=== PATIENT | female | born 1995 | race Caucasian/White ===

== ENCOUNTER 2016-09-30 15:50 | Outpatient (CLI) | payer MEDICAID ==
[~2016-09-30] VITALS: Ht 121.9 cm; Wt 50.2 kg
[2016-09-30 16:11] VITALS: BP 101/55; PULSE 80; Ht 121.9 cm; Wt 50.2 kg
[2016-09-30] MEDS ORDERED: TERBUTALINE 1 MG/ML INJ SC ONE ×2 (16:30→21:00)
[2016-09-30] MEDS ORDERED: LACTATED RINGER'S 1,000 ML IV SCH (16:30)
[2016-09-30] MEDS ORDERED: TERBUTALINE 1 ML ONE (16:30)
--- NOTE | 2016-09-30 21:03 | PN ---
Date/Time of Note Date/Time of Note DATE: 09/30/16 TIME: 20:54 OB Subjective Subjective Subjective 20 yo P0 @ 35 wks presents w ctx good FM, no VB, no LOF Ctx have now diminished after hydration and terbutaline OB Objective Objective Objective Nml VS Abdomen- gravid, n/t SVE- 07/05/-3 FHT- Cat I [place]- ctx, which are now diminished Abdomen: WNL Cervical Dilatation: 1cm Effacement: 25% Station: -3 Accelerations: Accelerations Present Decelerations: No Decelerations Contractions on Admission: >10 Minutes Apart OB Assessment/Plan Other plan: 20 yo P1 @ 35 wks w pre-term ctx, not in labor reassuring status d/c home PTL precautions ROSA ALVAREZ MD Sep 30, 2016 21:03
== END 2016-09-30 21:10 | disposition home or self-care (01) ==
LOC: L-D 15:50 → OBT 15:50
PROVIDERS: ATTEND Obstetrics & Gynecology
DX: O47.03 False labor before 37 completed weeks of gestation, third trimester (principal); Z3A.35 35 weeks gestation of pregnancy
CPT/HCPCS: 96360; 96361; 96372; J3105; J7120; Z7500; G0463

== ENCOUNTER 2016-10-17 20:43 | Outpatient (CLI) | payer MEDICAID ==
[~2016-10-17] VITALS: Ht 142.2 cm; Wt 51.7 kg
[2016-10-17 21:02] VITALS: Ht 142.2 cm; Wt 51.7 kg
[2016-10-17 21:05] VITALS: BP 100/62; PULSE 75; RESP 16
--- NOTE | 2016-10-17 22:36 | HP ---
Date/Time of Note Date/Time of Note DATE: 10/17/16 TIME: 22:32 OB - History Hx of Present Free Text/Dictation Laborist Note 20 YO with IUP at 35+ weeks reports to L&D with mild UCs. she denies LOF per vagina and VB. she reports good FM Care: Good Care Ultrasounds: Normal mid trimester US Obstetrical Complications: None Medical Complications: None Past Family/Social History * Past Medical, Surgical, Family and Obstetric Histories reviewed from chart. OB Admission Exam Vital Signs Vital Signs Vital Signs Date Time Temp Pulse Resp B/P Pulse Ox O2 Delivery O2 Flow Rate FiO2 10/17/16 21:05 98.0 75 16 100/62 Room Air Physical Exam HEENT: WNL Heart: Rhythm Normal Lungs: Clear, Equal Abdomen: WNL Extremities: Normal Reflexes: Normal Cervical Dilatation: 1cm OB Assessment/Plan Other Assessment: 35.6 weeks with infrequent ucs. Other plan: will be rechecked. if no cervical change then she is not in labor and she has false labor. she may be discharged home at that time HERNANDEZ JORGENSEN MD October 17, 2016 22:36
--- NOTE | 2016-10-18 01:54 | TRIAGE ---
OB Triage Datetime Report Generated by CPN: 10/18/2016 01:54 Datetime: 10/17/2016 21:21 Stage of : OB Triage Datetime: 10/17/2016 21:11 Vaginal Exam Dilatation (cms): 1.0 Effacement (%): 60 Station: -3 Exam By: jose rafael Vaginal Bleeding: None Cervix, Consistency: Soft Cervix, Position: Posterior Presentation 'A': Cephalic Datetime: 10/17/2016 20:57 Assessment Type: Triage Maternal Assessment Level of Consciousness: Fully Conscious DTR's/Clonus: DTRs 2+; No Clonus Headache: Denies Blurred Vision: No Respiratory Effort: Unlabored; Regular Rhythm; Equal Expansion Breath Sounds, Left: Clear and Equal Breath Sounds, Right: Clear and Equal Nausea/Vomiting: Denies RUQ Epigastric Pain: Denies Facial Edema: None Fall Risk Assessment History of Falling: (0) No Secondary Diagnosis: (0) No Ambulatory Aid: (0) Bedrest/Nurse Assist IV Therapy: (0) No Gait: (0) Normal/Bedrest/Immobile Mental Status: (0) Oriented to Own Ability Fall Score: 0 Fall Risk Score Definition: No Risk: No action required Comment: presented to triage c_o yellowish discharge and lower abdominal pain. fob present at beds damon. call light within reach. Datetime: 10/17/2016 20:56 Labor Evaluation Frequency: x2 Monitor Mode: External Duration (sec)2399: 40-50 Quality: Mild Pattern: Normal: <= 5 Contractions in 10 Minutes Resting Tone [place]: Relaxed Heart Rate FHR Baseline Rate: 125 Monitor Mode: External US Comments: placed on efm Datetime: 10/17/2016 20:52 Time of Arrival: 10/17/2016 20:40 EGA: 37.3 Arrived By: Wheelchair Arrived From: Home Chief Complaint: c_o yellowish discharge and lower abdominal pain Movement: Present Contractions: Denies/Absent Rupture of Membranes: Denies Vaginal Bleeding: None Vaginal Discharge: Present Recent Sexual Intercouse: Denies Abdominal Trauma: Not Applicable Patient Complaints: Contractions Time Provider Notified: 10/17/2016 21:21 Provider Notified: Initial Plan: EFM x2, VE Datetime: 09/30/2016 21:00 Stage of : OB Triage Datetime: 09/30/2016 20:53 Time of Arrival: 09/30/2016 20:53 EGA: 35.0 Arrived By: Ambulatory Arrived From: Home Labor Evaluation Frequency: 0 Monitor Mode: External Quality: Mild Pattern: Normal: <= 5 Contractions in 10 Minutes Resting Tone [place]: Relaxed Heart Rate FHR Baseline Rate: 135 Monitor Mode: External US FHR Baseline Changes: No Baseline Change Variability: Moderate 6-25 bpm Accelerations: 15X15 Decelerations: None Category: Category I Datetime: 09/30/2016 20:00 Stage of : OB Triage Labor Evaluation Frequency: 4/HR Monitor Mode: External Duration (sec)2399: 30-60 Quality: Mild Pattern: Normal: <= 5 Contractions in 10 Minutes Resting Tone [place]: Relaxed Heart Rate FHR Baseline Rate: 125 Monitor Mode: External US FHR Baseline Changes: No Baseline Change Variability: Moderate 6-25 bpm Accelerations: 15X15 Decelerations: None Category: Category I Datetime: 09/30/2016 19:54 Stage of : OB Triage Datetime: 09/30/2016 19:53 Stage of : OB Triage Datetime: 09/30/2016 19:43 Membrane Status: Intact Datetime: 09/30/2016 19:14 Assessment Type: Triage Maternal Assessment Level of Consciousness: Fully Conscious DTR's/Clonus: DTRs 2+; No Clonus Headache: Denies Blurred Vision: No Respiratory Effort: Unlabored; Regular Rhythm; Equal Expansion Breath Sounds, Left: Clear and Equal Breath Sounds, Right: Clear and Equal Nausea/Vomiting: Denies RUQ Epigastric Pain: Denies Facial Edema: None Fall Risk Assessment History of Falling: (0) No Secondary Diagnosis: (0) No Ambulatory Aid: (0) Bedrest/Nurse Assist IV Therapy: (0) No Gait: (0) Normal/Bedrest/Immobile Mental Status: (0) Oriented to Own Ability Fall Score: 0 Fall Risk Score Definition: No Risk: No action required Datetime: 09/30/2016 19:09 Vaginal Exam Dilatation (cms): 1.0 Effacement (%): 30 Station: -3 Exam By: Norma LUC RN Vaginal Bleeding: None Cervix, Consistency: Firm Cervix, Position: Posterior Datetime: 09/30/2016 18:08 Labor Evaluation Frequency: 0 Monitor Mode: External Resting Tone [place]: Relaxed Heart Rate FHR Baseline Rate: 145 Monitor Mode: External US Variability: Moderate 6-25 bpm Accelerations: 10X10 Decelerations: None Category: Category I Pain Assessment Pain Scale: 0 Pain Presence: None/Denies Pain Type: N/A Pain Goal: 3 Pain Relief Measures: Comfort Measures Datetime: 09/30/2016 17:08 Labor Evaluation Frequency: 0 Monitor Mode: External Resting Tone [place]: Relaxed Heart Rate FHR Baseline Rate: 135 Monitor Mode: External US Variability: Moderate 6-25 bpm Decelerations: None Category: Category I Pain Assessment Pain Scale: 0 Pain Presence: None/Denies Pain Type: N/A Pain Goal: 3 Pain Relief Measures: Comfort Measures Datetime: 09/30/2016 16:17 Stage of : OB Triage Datetime: 09/30/2016 16:05 Stage of : OB Triage Assessment Type: Triage EGA: 35.0 Maternal Assessment Level of Consciousness: Fully Conscious DTR's/Clonus: DTRs 2+; No Clonus Headache: Denies Blurred Vision: No Respiratory Effort: Unlabored; Regular Rhythm; Equal Expansion Breath Sounds, Left: Clear and Equal Breath Sounds, Right: Clear and Equal Nausea/Vomiting: Denies RUQ Epigastric Pain: Denies Facial Edema: None Temperature Route: Axillary Fall Risk Assessment History of Falling: (0) No Secondary Diagnosis: (0) No Ambulatory Aid: (0) Bedrest/Nurse Assist IV Therapy: (0) No Gait: (0) Normal/Bedrest/Immobile Mental Status: (0) Oriented to Own Ability Fall Score: 0 Fall Risk Score Definition: No Risk: No action required Labor Evaluation Frequency: APPLIED Monitor Mode: External Resting Tone [place]: Relaxed Heart Rate FHR Baseline Rate: 125 Monitor Mode: External US Variability: Moderate 6-25 bpm Decelerations: None Category: Category I Pain Assessment Pain Scale: 4 Pain Presence: Intermittent Pain Type: Cramping; Contraction Pain Location: Abdomen Pain Goal: 3 Pain Relief Measures: Comfort Measures Datetime: 09/30/2016 16:04 Time of Arrival: 09/30/2016 15:45 Arrived By: Ambulatory Arrived From: Dr. Mancilla Chief Complaint: SENT FROM OFFICE C/O UC'S Q 20 MIN, DENIES BLEEDING OR LEAKING OF FLUID Movement: Present Contractions: Irregular Contractions: 20 Rupture of Membranes: Denies Vaginal Bleeding: None Vaginal Discharge: Denies Recent Sexual Intercouse: Denies Abdominal Trauma: Not Applicable Patient Complaints: Contractions; Cramping Time Provider Notified: 09/30/2016 16:17 Provider Notified: TEMO Initial Plan: MONITOR, VE, IV HYDRATION, TERB .25MG SQ x1
== END 2016-10-17 23:45 | disposition home or self-care (01) ==
LOC: OBT 20:43 → L-D 20:43 → OBT 23:45
PROVIDERS: ATTEND Obstetrics & Gynecology
DX: O62.9 Abnormality of forces of labor, unspecified (principal); Z3A.35 35 weeks gestation of pregnancy
CPT/HCPCS: G0463

== ENCOUNTER 2016-10-20 16:42 | Outpatient (CLI) | payer MEDICAID ==
[~2016-10-20] VITALS: Ht 142.2 cm; Wt 51.3 kg
[2016-10-20 17:04] VITALS: BP 92/61; PULSE 94; RESP 16; Ht 142.2 cm; Wt 51.3 kg
--- NOTE | 2016-10-20 17:37 | RADRPT ---
PROCEDURE: US biophysical profile. CLINICAL INDICATION: Decreased motion. TECHNIQUE: Multiple sonographic images of the uterus were obtained. The images were revi ewed on a PACS workstation. COMPARISON: No prior studies are available for comparison. FINDINGS: There is a single live intrauterine gestation. heart rate is 132 beats per minute. The position is cephalic. The placenta is posterior fundal grade III with no abruption or previa. The DORITA is 9.0 cm. (Normal = 5-20 cm.) Breathing Movement: 2 Gross Body Movement: 2 Tone: 2 Qualitative Amniotic Fluid Volume: 2 TOTAL: 8 IMPRESSION: 1. The biophysical score is 8/8. RPTAT: QQ .Lonnie Spear MD, MD Date Time Electronically viewed and signed by .Lonnie Spear MD, on 10/20/2016 17:36 .R/
--- NOTE | 2016-10-20 18:08 | TRIAGE ---
OB Triage Datetime Report Generated by CPN: 10/20/2016 18:07 Datetime: 10/20/2016 17:07 Maternal Assessment Level of Consciousness: Fully Conscious DTR's/Clonus: DTRs 2+; No Clonus Headache: Denies Blurred Vision: No Respiratory Effort: Unlabored; Regular Rhythm; Equal Expansion Breath Sounds, Left: Clear and Equal Breath Sounds, Right: Clear and Equal Nausea/Vomiting: Denies RUQ Epigastric Pain: Denies Facial Edema: None Fall Risk Assessment History of Falling: (0) No Secondary Diagnosis: (0) No Ambulatory Aid: (0) Bedrest/Nurse Assist IV Therapy: (0) No Gait: (0) Normal/Bedrest/Immobile Mental Status: (0) Oriented to Own Ability Fall Score: 0 Fall Risk Score Definition: No Risk: No action required Datetime: 10/20/2016 17:06 Time of Arrival: 10/20/2016 16:38 EGA: 37.6 Arrived By: Ambulatory Arrived From: [facility] Chief Complaint: Pt. came to hospital from md office with referral for nst and bpp due to decrease d fm Movement: Decreased Contractions: Denies/Absent Rupture of Membranes: Denies Vaginal Bleeding: None Vaginal Discharge: Denies Recent Sexual Intercouse: Denies Abdominal Trauma: Not Applicable Patient Complaints: Other Initial Plan: nst, bpp Datetime: 10/17/2016 23:37 Stage of : OB Triage Labor Evaluation Frequency: 1-3.5 Monitor Mode: External Duration (sec)2399: 40-90 Quality: Mild Pattern: Normal: <= 5 Contractions in 10 Minutes Resting Tone [place]: Relaxed Heart Rate FHR Baseline Rate: 125 Monitor Mode: External US FHR Baseline Changes: No Baseline Change Variability: Moderate 6-25 bpm Accelerations: 15X15 Decelerations: None Category: Category I Pain Assessment Pain Scale: 3 Pain Presence: Intermittent Pain Type: Cramping Pain Location: Abdomen Pain Relief Measures: Comfort Measures Pain Assessment Comments: Pt comfortable to go home _ come back when uc's stronger. Datetime: 10/17/2016 23:27 Vaginal Exam Dilatation (cms): 1.0 Effacement (%): 60 Station: -3 Exam By: BRANDI Centeno Membrane Status: Intact Vaginal Bleeding: None Cervix, Position: Posterior Datetime: 10/17/2016 23:00 Stage of : OB Triage Labor Evaluation Frequency: 1-4 Monitor Mode: External Duration (sec)2399: 40-100 Quality: Mild Pattern: Normal: <= 5 Contractions in 10 Minutes Resting Tone [place]: Relaxed Heart Rate FHR Baseline Rate: 125 Monitor Mode: External US FHR Baseline Changes: No Baseline Change Variability: Moderate 6-25 bpm Accelerations: 15X15 Decelerations: None Category: Category I Datetime: 10/17/2016 22:21 Stage of : OB Triage Datetime: 10/17/2016 21:31 Stage of : OB Triage Labor Evaluation Frequency: 1-8.5 Monitor Mode: External Duration (sec)2399: 40-100 Quality: Mild Pattern: Normal: <= 5 Contractions in 10 Minutes Resting Tone [place]: Relaxed Heart Rate FHR Baseline Rate: 125 Monitor Mode: External US Variability: Moderate 6-25 bpm Accelerations: 15X15 Decelerations: None Category: Category I Datetime: 10/17/2016 20:57 Fall Score: 0 Fall Risk Score Definition: No Risk: No action required Datetime: 10/17/2016 20:52 EGA: 37.3 Datetime: 09/30/2016 20:53 EGA: 35.0 Datetime: 09/30/2016 19:14 Fall Score: 0 Fall Risk Score Definition: No Risk: No action required Datetime: 09/30/2016 16:05 EGA: 35.0 Fall Score: 0 Fall Risk Score Definition: No Risk: No action required
--- NOTE | 2016-10-20 19:38 | QN ---
Documentation Comment 20-year-old with IUP at 37 weeks was sent from the office due to decreased movements. Patient denies any leaking of fluid, vaginal bleeding or contractions. Patient denies any other complaint. Physical examination: General appearance alert and oriented 4 patient does not appear to be in any acute distress. Abdomen: Soft, gravid, nontender, fundal height consistent with gestational age NST: Category 1 and reactive BPP: 8/8 DORITA: 9 Occasional rare contraction seen on the monitor. Patient does not feel them. PROCEDURE: US biophysical profile. CLINICAL INDICATION: Decreased motion. TECHNIQUE: Multiple sonographic images of the uterus were obtained. The images were reviewed on a PACS workstation. COMPARISON: No prior studies are available for comparison. FINDINGS: There is a single live intrauterine gestation. heart rate is 132 beats per minute. The position is cephalic. The placenta is posterior fundal grade III with no abruption or previa. The DORITA is 9.0 cm. (Normal = 5-20 cm.) Breathing Movement: 2 Gross Body Movement: 2 Tone: 2 Qualitative Amniotic Fluid Volume: 2 TOTAL: 8 IMPRESSION: 1. The biophysical score is 8/8. RPTAT: QQ Assessment: 1. IUP at 37 weeks Decreased movement testing reassuring None in labor Patient discharged home Strict labor precaution and kick count discussed. Follow-up with OB office in 1-2 days after discharge recommended RT triage as needed any other problem MONI CORTEZ MD October 20, 2016 19:38
== END 2016-10-20 18:15 | disposition home or self-care (01) ==
LOC: OBT 16:42 → L-D 16:43 → OBT 18:15
PROVIDERS: ATTEND Obstetrics & Gynecology
DX: O36.8130 Decreased fetal movements, third trimester, not applicable or unspecified (principal); Z3A.37 37 weeks gestation of pregnancy
CPT/HCPCS: 76818; Z7500; G0463

== ENCOUNTER 2016-10-22 14:51 | Inpatient (IN) | payer MEDICAID ==
[~2016-10-22] VITALS: Ht 137.2 cm; Wt 51.6 kg
[2016-10-22 14:57] VITALS: Ht 137.2 cm; Wt 51.6 kg
[2016-10-22] MEDS ORDERED: PRENAT PO (14:58)
--- NOTE | 2016-10-22 18:17 | TRIAGE ---
OB Triage Datetime Report Generated by CPN: 10/22/2016 18:16 Datetime: 10/22/2016 18:01 Vaginal Exam Dilatation (cms): 4.0 Effacement (%): 80 Station: -2 Exam By: A GHUKASYAN Datetime: 10/22/2016 17:37 Labor Evaluation Frequency: 5-7 Monitor Mode: External Duration (sec)2399: 60-80 Quality: Mild Pattern: Normal: <= 5 Contractions in 10 Minutes Resting Tone [place]: Relaxed Heart Rate FHR Baseline Rate: 130 Monitor Mode: External US FHR Baseline Changes: No Baseline Change Variability: Moderate 6-25 bpm Accelerations: 15X15 Decelerations: None Category: Category I Pain Assessment Pain Scale: 7 Pain Presence: Intermittent Pain Type: Cramping Pain Location: Abdomen Pain Relief Measures: Comfort Measures Datetime: 10/22/2016 17:22 Vaginal Exam Dilatation (cms): 3.5 Effacement (%): 80 Station: -2 Datetime: 10/22/2016 15:37 Labor Evaluation Frequency: 4-6 Monitor Mode: External Duration (sec)2399: 50-70 Quality: Mild Pattern: Normal: <= 5 Contractions in 10 Minutes Resting Tone [place]: Relaxed Heart Rate FHR Baseline Rate: 140 Monitor Mode: External US FHR Baseline Changes: No Baseline Change Variability: Moderate 6-25 bpm Accelerations: 15X15 Decelerations: None Category: Category I Pain Assessment Pain Scale: 5 Pain Presence: Intermittent Pain Type: Cramping Pain Location: Abdomen Pain Relief Measures: Comfort Measures Vaginal Exam Dilatation (cms): 3.0 Effacement (%): 80 Station: -2 Datetime: 10/22/2016 15:02 Assessment Type: Triage Maternal Assessment Level of Consciousness: Fully Conscious DTR's/Clonus: DTRs 2+; No Clonus Headache: Denies Blurred Vision: No Respiratory Effort: Unlabored; Regular Rhythm; Equal Expansion Breath Sounds, Left: Clear and Equal Breath Sounds, Right: Clear and Equal Nausea/Vomiting: Denies RUQ Epigastric Pain: Denies Lower Extremities Edema: None Degree: None Upper Extremities Edema: None Degree: None Facial Edema: None Fall Risk Assessment History of Falling: (0) No Secondary Diagnosis: (0) No Ambulatory Aid: (0) Bedrest/Nurse Assist IV Therapy: (0) No Gait: (0) Normal/Bedrest/Immobile Mental Status: (0) Oriented to Own Ability Fall Score: 0 Fall Risk Score Definition: No Risk: No action required Datetime: 10/22/2016 14:59 Labor Evaluation Frequency: OCC Monitor Mode: External Quality: Mild Pattern: Normal: <= 5 Contractions in 10 Minutes Resting Tone [place]: Relaxed Heart Rate FHR Baseline Rate: 140 Monitor Mode: External US FHR Baseline Changes: No Baseline Change Variability: Moderate 6-25 bpm Accelerations: 15X15 Decelerations: None Category: Category I Pain Assessment Pain Scale: 4 Pain Presence: Intermittent Pain Type: Cramping Pain Location: Abdomen Pain Relief Measures: Comfort Measures Datetime: 10/22/2016 14:37 Time of Arrival: 10/22/2016 14:37 EGA: 37.2 Arrived By: Ambulatory Arrived From: Home Chief Complaint: UC'S SINCE 0530 AM Movement: Present Contractions: Irregular Time Contractions Began: 10/22/2016 05:30 Rupture of Membranes: Denies Vaginal Bleeding: None Vaginal Discharge: Denies Recent Sexual Intercouse: Denies Abdominal Trauma: Not Applicable Patient Complaints: Contractions Datetime: 10/20/2016 18:06 Labor Evaluation Frequency: occ Duration (sec)2399: 60 Quality: Mild Pattern: Normal: <= 5 Contractions in 10 Minutes Resting Tone [place]: Relaxed Heart Rate FHR Baseline Rate: 135 Monitor Mode: External US Variability: Moderate 6-25 bpm Accelerations: 15X15 Decelerations: None Category: Category I Pain Presence: None/Denies Pain Type: N/A Datetime: 10/20/2016 17:07 Fall Score: 0 Fall Risk Score Definition: No Risk: No action required Datetime: 10/20/2016 17:06 EGA: 37.0 Datetime: 10/17/2016 20:57 Fall Score: 0 Fall Risk Score Definition: No Risk: No action required Datetime: 10/17/2016 20:52 EGA: 36.4 Datetime: 09/30/2016 20:53 EGA: 34.1 Datetime: 09/30/2016 19:14 Fall Score: 0 Fall Risk Score Definition: No Risk: No action required Datetime: 09/30/2016 16:05 EGA: 34.1 Fall Score: 0 Fall Risk Score Definition: No Risk: No action required
--- NOTE | 2016-10-22 18:18 | HP ---
Date/Time of Note Date/Time of Note DATE: 10/22/16 TIME: 18:14 OB - History Hx of Present Free Text/Dictation admitted C/O UCs started 0500 AM 10/22/16 at 38 weeks Last Menstrual Period: Feb 19, 2016 Estimated Due Date: Nov 10, 2016 : 2 Para: 1 Care: Good Care Ultrasounds: Normal mid trimester US Obstetrical Complications: None Medical Complications: None Past Family/Social History * Past Medical, Surgical, Family and Obstetric Histories reviewed from chart. Blood Type: O+ Rubella: immune RPR/VDRL: Negative GBS Status: Negative HBsAG: Negative OB Admission Exam Physical Exam HEENT: WNL Heart: Rhythm Normal Lungs: Clear, Equal Abdomen: WNL Extremities: Normal Reflexes: Normal Cervical Dilatation: 4cm Effacement: 100% Station: -2 Membranes: Intact Heart Rate: 130's Accelerations: Accelerations Present Decelerations: No Decelerations Varibility: Marked Contractions on Admission: < 5 Minutes Apart Date/Time Contractions Began: 10/22/2016 0500 AM Frequency of Contractions: q 4-5 min Duration: >60 seconds Intensity: Mild OB Assessment/Plan Other Assessment: term gestation labor pains Other plan: proceed with spontaneous labor VIJAYA ANDRES MD October 22, 2016 18:18
[2016-10-22] MEDS ORDERED: METHYLERGONOVINE 0.2 MG INJ IM PRN (18:30)
[2016-10-22] MEDS ORDERED: LIDOCAINE 1% (MPF) 30 ML INJ INJ PRN (18:30)
[2016-10-22] MEDS ORDERED: LACTATED RINGER'S 1,000 ML IV PRN (18:30)
[2016-10-22] MEDS ORDERED: CARBOPROST 250 MCG INJ IM PRN (18:30)
[2016-10-22] MEDS ORDERED: IBUPROFEN 600 MG TAB PO PRN (18:30)
[2016-10-22] MEDS ORDERED: MISOPROSTOL 200 MCG TAB PR PRN (18:30)
[2016-10-22] MEDS ORDERED: BUTORPHANOL 2 MG INJ IV PRN (18:30)
[2016-10-22] MEDS ORDERED: OXYTOCIN 30 UNITS/LR 500 ML IV SCH ×2 (18:30)
[2016-10-22] MEDS ORDERED: OXYTOCIN 30 UNITS/LR 500 ML IV PRN (18:30)
[2016-10-22] MEDS: LACTATED RINGER'S 1,000 ML IV SCH ×2 (19:08→22:40)
[2016-10-22 19:09] VITALS: BP 112/71; PULSE 74; RESP 20
[2016-10-22 19:17] LABS: ADD SCAN DIFF NO
[2016-10-22 19:18] LABS: BASOPHILS % 0.4 % (0.0-2.0); EOSINOPHILS # 0.1 10^3/ul (0.0-0.5); EOSINOPHILS % 0.5 % (0.0-7.0); HEMATOCRIT 35.7 % (37.0-47.0); HEMOGLOBIN 12.2 g/dl (12.0-16.0); LYMPHOCYTES % 19.8 % (18.0-55.0); MEAN CORPUSCULAR HEMOGLOBIN 32.4 pg (29.0-33.0); MEAN CORPUSCULAR HGB CONC 34.2 g/dl (32.0-37.0); MEAN CORPUSCULAR VOLUME 94.9 fl (72.0-104.0); MEAN PLATELET VOLUME 10.9 fl (7.4-10.4); MONOCYTE # 0.7 10^3/ul (0.3-0.9); MONOCYTES % 6.9 % (0.0-13.0); NEUTROPHIL # 7.2 10^3/ul (1.6-7.5); NEUTROPHILS % 71.6 % (30.0-74.0); PLATELET COUNT 206 10^3/UL (140-415); RED BLOOD COUNT 3.76 10^6/ul (4.20-5.40); RED CELL DISTRIBUTION WIDTH 12.6 % (11.5-14.5)
[2016-10-22 19:34] LABS: INR 0.93; PROTIME 12.5 Sec (12.2-14.2)
[2016-10-22 19:35] LABS: PARTIAL THROMBOPLASTIN TIME 29.2 Sec (25.0-35.0)
--- NOTE | 2016-10-22 23:07 | LDN ---
Date/Time of Note Date/Time of Note DATE: 10/22/16 TIME: 23:04 Delivery Summary of a viable over intact perineum Weeks of Gestation 37+ Placenta Delivered: Spontaneously, Intact & Complete Meconium: none Episiotomy: No Laceration repair: small vestibular laceration was repaired in layers with 4 0 Chromic Anesthesia type: None Estimated blood loss: 300 Sponge & Needle done & correct: Yes All needle counts correct: Yes Any foreign bodies felt in the: No Problems: Infant Delivery Information Sex Sex: male Apgars 1 Minute: 9 5 Minute: 9 Suctioning Nose & mouth suctioned at [place]: Yes Delee suction performed: No Umbilical Cord Umbilical cord with: 3 Vessels Cord presentations: no nuchal cord Cord Blood was obtained: Yes Mother & Baby Disposition Disposition Mom & Baby to Maternity; Good: Yes (mother and baby were recovered in good condition ) Mom transferred to: Other (maternity ) VIJAYA ANDRES MD October 22, 2016 23:07
[2016-10-23 00:40] VITALS: BP 121/72; PULSE 85; RESP 19
[2016-10-23] MEDS ORDERED: METHYLERGONOVINE 0.2 MG INJ IM PRN (01:30)
[2016-10-23] MEDS ORDERED: WITCH HAZEL/GLYCERIN PAD PR PRN (01:30)
[2016-10-23] MEDS ORDERED: MISOPROSTOL 200 MCG TAB PR PRN (01:30)
[2016-10-23] MEDS ORDERED: BENZOCAINE 20% 56 ML SPRAY TOP PRN (01:30)
[2016-10-23] MEDS ORDERED: CARBOPROST 250 MCG INJ IM PRN (01:30)
[2016-10-23] MEDS ORDERED: ZOLPIDEM 5 MG TAB PO PRN (01:30)
[2016-10-23] MEDS ORDERED: LANOLIN 7 GM TUBE TOP PRN (01:30)
[2016-10-23] MEDS ORDERED: OXYTOCIN 30 UNITS/LR 500 ML IV PRN (01:30)
[2016-10-23] MEDS ORDERED: DIBUCAINE 1% 30 GM OINT PR PRN (01:30)
[2016-10-23] MEDS ORDERED: ACETAMINOPHEN/CODEINE #3 TAB PO PRN ×2 (01:30)
[2016-10-23] MEDS: LACTATED RINGER'S 1,000 ML IV* SCH ×2 (03:48→09:04)
[2016-10-23 04:16] VITALS: BP 104/55; PULSE 92; RESP 19
[2016-10-23] MEDS: IBUPROFEN 600 MG TAB PO SCH ×4 (05:23→23:35)
[2016-10-23 08:00] VITALS: BP 112/64; PULSE 72; RESP 19
[2016-10-23 08:10] LABS: ADD SCAN DIFF NO
[2016-10-23 08:19] LABS: BASOPHILS % 0.3 % (0.0-2.0); EOSINOPHILS % 0.3 % (0.0-7.0); HEMATOCRIT 28.9 % (37.0-47.0); HEMOGLOBIN 9.7 g/dl (12.0-16.0); LYMPHOCYTES # 1.8 10^3/ul (0.8-2.9); LYMPHOCYTES % 15.8 % (18.0-55.0); MEAN CORPUSCULAR HEMOGLOBIN 31.6 pg (29.0-33.0); MEAN CORPUSCULAR HGB CONC 33.6 g/dl (32.0-37.0); MEAN CORPUSCULAR VOLUME 94.1 fl (72.0-104.0); MEAN PLATELET VOLUME 10.9 fl (7.4-10.4); MONOCYTE # 0.8 10^3/ul (0.3-0.9); MONOCYTES % 7.3 % (0.0-13.0); NEUTROPHIL # 8.4 10^3/ul (1.6-7.5); NEUTROPHILS % 75.7 % (30.0-74.0); PLATELET COUNT 174 10^3/UL (140-415); RED BLOOD COUNT 3.07 10^6/ul (4.20-5.40); RED CELL DISTRIBUTION WIDTH 12.6 % (11.5-14.5); WHITE BLOOD COUNT 11.1 10^3/ul (4.8-10.8)
[2016-10-23] MEDS: SENNA/DOCUSATE NA (8.6MG/50MG) TAB PO SCH ×2 (09:11→21:43)
[2016-10-23] MEDS: MAGNESIUM HYDROXIDE 30ML CUP PO SCH ×2 (09:12→21:43)
[2016-10-23 16:00] VITALS: BP 110/57; RESP 18
--- NOTE | 2016-10-23 16:28 | DS ---
Date/Time of Note Date/Time of Note home next day DATE: 10/23/16 TIME: 16:21 Obstetrical Discharge Record Final Diagnosis Final Diagnosis: Term delivered Other Final Diagnosis S/P vaginal delivery Vaginal Delivery Obstetrical Delivery: Spontaneous, Laceration, Repaired Condition on Discharge Physical Assessment Last Vitals: see nurses notes Voiding: Yes Bowel Movement: Yes Breast: Soft, non-tender, Filling Fundus: Firm Abdomen and Incision: soft BS+ Episiotomy: NA Calf Tenderness: No Patient Condition: Good VIJAYA ANDRES MD October 23, 2016 16:28
--- NOTE | 2016-10-23 16:30 | PD.PPDC ---
[employer] Discharge Instruction Provider Information Physician Information 20 y/o female had vaginal delivery Diagnosis Final Diagnosis: S/P vaginal delivery Condition Patient Condition: Good Diet Diet: Resume Regular Diet Activity/Restrictions Activity: Normal Activity May Shower Restrictions: Nothing in the Vagina Return to Work or School: Dec 06, 2016 Follow-up Follow-up with Physician: 4, Week/Weeks (in clinic ) Return to clinic for OB Instructions: Breast Tenderness Depression VIJAYA ANDRES MD October 23, 2016 16:30
[2016-10-23] MEDS ORDERED: IBUP-1542 PO (16:31)
[2016-10-23 20:00] VITALS: BP 99/61; PULSE 77; RESP 19
[2016-10-24 04:45] VITALS: BP_SYST 100; BP_SYST 103; BP_DIAS 52; PULSE 57; PULSE 71; RESP 20
[2016-10-24] MEDS: IBUPROFEN 600 MG TAB PO SCH ×2 (05:48→11:45)
[2016-10-24 08:00] VITALS: BP 90/54; PULSE 83; RESP 18
[2016-10-24] MEDS ORDERED: VARICELLA VACCINE LIVE/PF 1,350 UNIT/0.5 ML ML SC* ONE (09:00)
[2016-10-24] MEDS ORDERED: DIPHTH/TET/ACEL PERTUSS (ADULT) 0.5 ML VIAL IM* ONE (09:00)
[2016-10-24] MEDS ORDERED: MEASLES,MUMPS,RUBELLA VACCINE INJ SC* ONE (09:00)
[2016-10-24] MEDS: SENNA/DOCUSATE NA (8.6MG/50MG) TAB PO SCH (10:19)
[2016-10-24] MEDS: MAGNESIUM HYDROXIDE 30ML CUP PO SCH (10:19)
== END 2016-10-24 13:20 | disposition home or self-care (01) | DRG 775 ==
LOC: L-D 14:51 → OBT 14:51 → L-D 18:00 → OBT 18:00 → PP1 10-23 00:38
PROVIDERS: ADMIT Obstetrics & Gynecology; ATTEND Obstetrics & Gynecology
PROC: 10E0XZZ Delivery of Products of Conception, External Approach (ICD-10-PCS; principal; 2016-10-22)
PROC: 0HQ9XZZ Repair Perineum Skin, External Approach (ICD-10-PCS; 2016-10-22)
DX: O70.9 Perineal laceration during delivery, unspecified (principal); Z37.0 Single live birth; Z3A.37 37 weeks gestation of pregnancy
CPT/HCPCS: 85025; 85610; 85730; 86592; 86900; 86901; 87340; 90715; 90716; G0463; J2590; J7120

== ENCOUNTER 2017-12-29 23:38 | Emergency (ER) | END 2017-12-30 06:55 | disposition home or self-care (01) ==

== ENCOUNTER 2018-05-30 20:16 | Emergency (ER) | END 2018-05-31 00:09 | disposition home or self-care (01) ==

== ENCOUNTER 2018-06-02 08:40 | Emergency (ER) | END 2018-06-02 10:10 | disposition home or self-care (01) ==